=== PATIENT | female | born 1985 | race Caucasian/White ===

== ENCOUNTER 2016-09-26 10:20 | Emergency (ER) | payer BC ==
[~2016-09-26] VITALS: Ht 162.6 cm; Wt 82.0 kg
[~2016-09-26 10:20] MED LIST: BACT800T5 PO; CEPH500C3 PO; HYDR-3533 PO
[2016-09-26 10:22] VITALS: BP 115/79; PULSE 75; RESP 16; TEMP 98; O2SAT 98
[2016-09-26] MEDS ORDERED: HYDR-3533 PO (10:40)
--- NOTE | 2016-09-26 10:43 | PD ---
HPI . head congestion and cough x 5 days Chief Complaint: Cold / Flu Symptoms Time Seen by Provider: 10:42 Travel History International Travel<30 days: No Contact w/Intl Traveler<30days: No Traveled to known affect area: No History of Present Illness HPI 31 yr old female with back issues here with c/o nasal congestion, headache congestion, cough and possible chills x 5 days. She says she has been trying to self medication with mucinex, but it is only suppressing her cough. She continues to have lots of nasal congestion, mucous building and productive cough. She thinks she may have had chills that improved with Mucinex. She denies any fever. 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 Reported Meds & Prescriptions Reported Meds & Active Scripts Active Augmentin (Amoxicillin-Clavulanate) 875-125 Mg Tab 1 Tab PO BID 10 Days Reported Lortab (Hydrocodone-Acetaminophen) 5-325 Mg Tab 1 Tab PO Q4H PRN Review of Systems General / Constitutional: No: Fever Eyes: No: Visual changes HENT: Positive: Headaches, Congestion, No: Sore Throat Cardiovascular: No: Chest Pain or Discomfort Respiratory: No: Shortness of Breath Gastrointestinal: No: Abdominal Pain Genitourinary: No: Dysuria Musculoskeletal: No: Pain Skin: No Rash Neurologic: No: Weakness Psychiatric: No: Depression Endocrine: No: Polydipsia Hematologic/Lymphatic: No: Easy Bruising Physical Exam Narrative GENERAL: AAO x 3, no acute distress, Well-nourished, well-developed patient. SKIN: Warm and dry. No visible rashes or bruising. HEAD: Normocephalic and atraumatic. EYES: No scleral icterus. No injection or drainage. EOM intact, PERRLA ENT: No nasal drainage noted. Mucous membranes pink. Airway patent. + maxillary sinus tenderness, NECK: Supple, trachea midline. No JVD. no lymphadeno CARDIOVASCULAR: Regular rate and rhythm without murmurs, gallops, or rubs. RESPIRATORY: Breath sounds equal bilaterally. No accessory muscle use. No rhonchi or rales. GASTROINTESTINAL: visual inspection normal EXTREMITIES: No cyanosis or edema. BACK: Nontender without obvious deformity. No CVA tenderness. NEURO: CN II-12 intact, stevedore hold strength normal b/l, UE and LE 5/5, no focal deficits PSYCH: AAO x 3, normal affect. Data Data Last Documented VS Vital Signs Date Time Temp Pulse Resp B/P Pulse Ox O2 Delivery O2 Flow Rate FiO2 09/26/16 10:54 97.8 76 16 118/77 99 09/26/16 10:43 Room Air MDM Medical Decision Making Medical Screen Exam Complete: Yes Emergency Medical Condition: Yes Medical Record Reviewed: Yes Differential Diagnosis acute sinusitis, less likely pneumonia, less likely influenza Narrative Course 31-year-old female here with what appears to be a sinusitis. I discussed my diagnosis with her and she is in agreement. I recommend a trial of antibiotics. I advised her to follow-up with her primary care provider. Patient verbalized understanding of instructions, questions were answered, and thanked me for their care. I advised them if their condition worsens, please return to the nearest emergency room for further care. Diagnosis Primary Impression: Acute sinusitis Qualified Code: J01.00 - Acute non-recurrent maxillary sinusitis Patient Instructions: General Instructions Additional Instructions: Please return to emergency department if your symptoms return or worsen. Follow up with your primary care provider. Take medications as prescribed. Med/Other Pt SpecificInfo: Prescription(s) given Scripts Amoxicillin-Clavulanate (Augmentin)875-125 Mg Tab1 Tab PO BID 10 Days Prov:Helga Garcia DO 09/26/16 Disposition: 01 DISCHARGE HOME Condition: Stable Meghan Lockwood Sep 26, 2016 10:43
[2016-09-26] MEDS ORDERED: AUGM875T3 PO (10:46)
[2016-09-26 10:54] VITALS: BP 118/77; TEMP 97.8
== END 2016-09-26 10:54 | disposition home or self-care (01) ==
LOC: NEPK 10:20
DX: J01.90 Acute sinusitis, unspecified (principal); R51 Headache; R05 Cough; J45.909 Unspecified asthma, uncomplicated; Z79.899 Other long term (current) drug therapy
CPT/HCPCS: 99283